=== PATIENT | male | born 1985 ===

== ENCOUNTER 2023-01-12 03:27 | Emergency (ER) | payer SELFPAY ==
[2023-01-12 04:14] LABS: INR-International Normal Ratio 1.6; Prothrombin Time 19.7 sec (12.0-14.7)
[2023-01-12 04:15] LABS: PTT 38.3 sec (22.9-36.1)
[2023-01-12 04:30] LABS: Chloride 103 mmol/L (98-107); Potassium 3.6 mmol/L (3.5-5.1); Sodium 134 mmol/L (136-145)
[2023-01-12 04:31] LABS: Albumin 2.6 g/dL (3.5-5.0); BUN (Urea Nitrogen) 6 mg/dL (8.9-20.6); Bilirubin, Total 0.7 mg/dL (0.2-1.2); Calc. Creatinine Clearance 0 mL/min (70-130); Calcium 7.4 mg/dL (7.6-10.4); Estimated GFR 89; Globulin 2.9 g/dL (2.4-3.5); Protein, Total 5.5 g/dL (6.0-8.3)
[2023-01-12 04:32] LABS: ALT (SGPT) 1790 U/L (8-55); AST (SGOT) Greater than 3500 U/L (5-34); Alkaline Phosphatase 222 U/L (40-110); Carbon Dioxide Less than 8 mmol/L (22-29); Lipase 483 U/L (8-78)
[2023-01-12 04:33] LABS: Glucose 431 mg/dL (70-105)
[2023-01-12 04:34] LABS: Hematocrit 35.2 % (42.0-52.0); Hemoglobin 10.4 g/dL (14.0-18.0); Mean Corpuscular HGB CONC 29.6 g/dL (32.0-36.0); Mean Corpuscular Hemoglobin 26.5 pg (27.0-31.0); Mean Corpuscular Volume 89.8 fl (78.0-98.0); Mean Platelet Volume 8.3 fL (7.4-10.4); Platelet Count 131 10x3/uL (130-400); RBC Distribution Width 15.5 % (11.5-14.5); Red Blood Cell (RBC) Count 3.92 mill/uL (4.70-6.10)
[2023-01-12 04:35] LABS: #Basophils 0.2 thou/uL (0.0-0.2); #Eosinphils 0.1 thou/uL (0.0-0.7); #Lymphocytes 4.6 thou/uL (1.20-3.40); #Monocytes 0.3 thou/uL (0.11-0.59); #Neutrophils 8.9 thou/uL (1.40-6.50); %Basophils 1.3 % (0.0-1.0); %Eosinophils 0.4 % (0.0-10.0); %Lymphocytes 33.1 % (21.0-51.0); %Monocytes 2.3 % (0.0-10.0); Anisocytosis SLIGHT = 6-15 cells (100X) (0-5/hpf)
[2023-01-12 04:36] LABS: Platelet Adequacy Comment Appears Adequate
== END 2023-01-12 04:03 | disposition short-term general hospital (02) ==
LOC: EDBD 03:27 → BURERS 03:27
DX: S38.1XXA Crushing injury of abdomen, lower back, and pelvis, initial encounter (principal); S30.811A Abrasion of abdominal wall, initial encounter; S70.312A Abrasion, left thigh, initial encounter; R57.1 Hypovolemic shock; W24.0XXA Contact with lifting devices, not elsewhere classified, initial encounter; Y92.69 Other specified industrial and construction area as the place of occurrence of the external cause
CPT/HCPCS: 36415; 71045; 72170; 80053; 83690; 85025; 85610; 85730; 86850; 86900; 86901; 99285; G0390